=== PATIENT | female | born 1995 | race Caucasian/White ===

== ENCOUNTER 2024-11-07 20:17 | Emergency (ER) | payer MEDICAID ==
[~2024-11-07] VITALS: Ht 157.5 cm; Wt 68.0 kg
[2024-11-07 20:39] VITALS: O2SAT 100
[2024-11-07 20:47] VITALS: TEMP 36.8; O2SAT 99
[2024-11-07 21:47] VITALS: BP 118/64; PULSE 63; RESP 18
[2024-11-07] MEDS: ONDANSETRON HCL 4MG/2ML INJ IV STA (21:47)
[2024-11-07] MEDS: MORPHINE SULFATE 4 MG/ML INJ (FOR IV/IM USE) IV STA (21:47)
[2024-11-07] MEDS: SODIUM CHLORIDE 0.9% 1,000 ML IV ONE (21:47)
[2024-11-07 22:03] LABS: CARBON DIOXIDE 25 mEq/L (21-32); CHLORIDE 104 mEq/L (98-107); SODIUM 136 mEq/L (136-145)
[2024-11-07 22:04] LABS: CALCIUM 9.4 mg/dL (8.7-10.4)
[2024-11-07 22:09] LABS: CREATININE 0.8 mg/dL (0.6-1.0); GLUCOSE 93 mg/dL (70-105); UREA NITROGEN BLOOD 14 mg/dL (9-23)
[2024-11-07 22:10] LABS: ALANINE AMINOTRANSFERASE 12 IU/L (10-49); ASPARTATE AMINOTRANSFERASE 18 IU/L (<34)
[2024-11-07 22:11] LABS: ALBUMIN 4.5 g/dL (3.2-4.8); BILIRUBIN DIRECT 0.1 mg/dL (<=3.0); BILIRUBIN TOTAL 0.5 mg/dL (0.1-1.0); PROTEIN TOTAL 7.7 g/dL (6.0-8.3)
[2024-11-07 22:14] LABS: HCG SCREEN NEGATIVE; HEMATOCRIT. 36.5 % (36.0-48.0); HEMOGLOBIN. 12.3 g/dL (12.0-16.0); MEAN CORPUSCULAR HEMOGLOBIN 28.8 pg (28.0-32.0); MEAN CORPUSCULAR HGB CONC 33.8 g/dL (31.0-37.0); MEAN CORPUSCULAR VOLUME 85.1 fL (81.0-99.0); MEAN PLATELET VOLUME 7.2 fl (7.4-10.4); PLATELET 351 x1000/uL (130-400); RED BLOOD CELL COUNT 4.28 mill/uL (4.2-5.4); RED CELL DISTRIBUTION WIDTH 13.4 % (11.6-14.6); WHITE BLOOD COUNT 9.7 x1000/uL (4.5-11.0)
[2024-11-07 22:17] LABS: DIFFERENTIAL COMMENT 1
[2024-11-07 22:49] LABS: PLATELET ESTIMATE NORMAL
[2024-11-07] MEDS ORDERED: IOHEXOL-300 100 ML BOTTLE ONE (23:23)
[2024-11-07] MEDS ORDERED: HYDR-4001 MT (23:34)
== END 2024-11-08 00:33 | disposition home or self-care (01) ==
LOC: ER 20:17
DX: K80.20 Calculus of gallbladder without cholecystitis without obstruction (principal); Z79.899 Other long term (current) drug therapy
CPT/HCPCS: 99285; 74177; 96374; 76705; 96361; 96375; 80076; 80048; 84703; 83690; 85025; 36415; Q9967; J2405; J2270; J7030

== ENCOUNTER 2024-11-16 22:44 | Emergency (ER) | payer MEDICAID ==
[~2024-11-16] VITALS: Ht 149.9 cm; Wt 73.5 kg
[~2024-11-16 22:44] MED LIST: HYDR-4001 MT
[2024-11-16 22:49] VITALS: BP 105/69; PULSE 74; TEMP 36.9; O2SAT 98; O2SAT 99
[2024-11-16 23:20] LABS: HEMATOCRIT. 37.3 % (36.0-48.0); HEMOGLOBIN. 12.3 g/dL (12.0-16.0); MEAN CORPUSCULAR HEMOGLOBIN 28.9 pg (28.0-32.0); MEAN CORPUSCULAR VOLUME 87.5 fL (81.0-99.0); MEAN PLATELET VOLUME 7.4 fl (7.4-10.4); PLATELET 347 x1000/uL (130-400); RED BLOOD CELL COUNT 4.26 mill/uL (4.2-5.4); RED CELL DISTRIBUTION WIDTH 13.5 % (11.6-14.6); WHITE BLOOD COUNT 8.8 x1000/uL (4.5-11.0)
[2024-11-16 23:21] LABS: DIFFERENTIAL COMMENT 1
[2024-11-16 23:22] LABS: CLARITY URINE CLEAR (CLEAR); COLOR URINE YELLOW (YELLOW); GLUCOSE URINE NEGATIVE (NEGATIVE); KETONES URINE TRACE (NEGATIVE); LEUKOCYTE ESTERASE URINE NEGATIVE (NEGATIVE); NITRITE URINE NEGATIVE (NEGATIVE); OCCULT BLOOD URINE NEGATIVE (NEGATIVE); PH URINE 5.5 (4.5-8.0); PROTEIN URINE NEGATIVE (NEGATIVE); SPECIFIC GRAVITY URINE 1.027 (1.005-1.030)
[2024-11-16 23:27] LABS: CHLORIDE 107 mEq/L (98-107); SODIUM 141 mEq/L (136-145)
[2024-11-16 23:28] LABS: CALCIUM 9.5 mg/dL (8.7-10.4); CARBON DIOXIDE 27 mEq/L (21-32)
[2024-11-16 23:31] LABS: PLATELET ESTIMATE NORMAL
[2024-11-16 23:33] LABS: CREATININE 0.6 mg/dL (0.6-1.0); GLUCOSE 102 mg/dL (70-105); UREA NITROGEN BLOOD 11 mg/dL (9-23)
[2024-11-16 23:35] LABS: ALANINE AMINOTRANSFERASE 9 IU/L (10-49); ALBUMIN 4.2 g/dL (3.2-4.8); ASPARTATE AMINOTRANSFERASE 17 IU/L (<34); BILIRUBIN DIRECT 0.1 mg/dL (<=3.0)
[2024-11-16 23:36] LABS: BILIRUBIN TOTAL 0.4 mg/dL (0.1-1.0); PROTEIN TOTAL 7.2 g/dL (6.0-8.3)
[2024-11-17] MEDS ORDERED: ONDA-239 PO (02:18)
[2024-11-17] MEDS ORDERED: NAPR-1164 MT (02:18)
[2024-11-17] MEDS ORDERED: AMOX1TAB16 MT (02:18)
[2024-11-17 03:06] VITALS: RESP 16
[2024-11-17] MEDS: IBUPROFEN 600MG TABLET PO ONE (03:06)
[2024-11-17] MEDS: TRAMADOL 50MG TABLET PO ONE (03:07)
== END 2024-11-17 03:00 | disposition home or self-care (01) ==
LOC: ER 22:44
DX: K80.20 Calculus of gallbladder without cholecystitis without obstruction (principal); Z79.899 Other long term (current) drug therapy
CPT/HCPCS: 36415; 80048; 80076; 81003; 85025; 99283